=== PATIENT | male | born 1980 | race Hispanic/Latino ===

== ENCOUNTER 2021-07-07 13:25 | Emergency (ER) | payer SELFPAY | END 2021-07-08 04:42 | disposition left against medical advice (07) | LOC: ED 13:25 | DX: R07.9 Chest pain, unspecified (principal); Z53.21 Procedure and treatment not carried out due to patient leaving prior to being seen by health care provider ==

== ENCOUNTER 2021-07-08 13:58 | Emergency (ER) | payer BC ==
[2021-07-08 14:09] VITALS: BP 135/79
[2021-07-08] MEDS ORDERED: ASPIRIN 325 MG TAB PO ONE (16:13)
--- NOTE | 2021-07-08 16:56 | XRay Report ---
CHEST 2 VIEWS INDICATION: Chest Pain. COMPARISON: None FINDINGS: SUPPORT DEVICES: None. HEART: Within normal limits. LUNGS/PLEURA: No acute air space or interstitial disease. No pneumothorax. ADDITIONAL FINDINGS: None. IMPRESSION: 1. No acute findings. Signer Name: Brock Dean MD Signed: 07/08/2021 4:52 PM Workstation Name: [id number]
[2021-07-08 17:29] LABS: Alanine Aminotransferase 11 units/L (7-56); Albumin 4.2 g/dL (3.9-5); BUN/Creatinine Ratio 16; Blood Urea Nitrogen 14 mg/dL (9-20); Calcium 8.8 mg/dL (8.4-10.2); Hemolysis Index 33
--- NOTE | 2021-07-08 17:34 | Emergency Department Report ---
ED General Adult HPI - General Chief complaint: Chest Pain Stated complaint: CHEST PAIN Time Seen by Provider: 07/08/21 16:01 Source: patient Mode of arrival: Ambulatory Limitations: No Limitations - History of Present Illness Initial comments: Patient is a 40-year-old male presents emergency room with complaints of anxiety. He reports that his anxiety has been increasing over the last few months. He states he previously used to take Zoloft and Xanax and has been out of his medication for 4 months. He states over the last week he has had intermittent chest tightness and difficulty sleeping. He reports he has a history of anxiety, depression, PTSD. He denies any SI or HI. He denies any shortness of breath, cough, fever, vomiting, diarrhea, leg swelling, calf pain. He denies any chest tightness currently. He reports he has a history of h ypertension and is also supposed to be on medications but does not know what he used to take for his blood pressure. No allergies to medications. He is a smoker. He denies any family cardiac history. - Related Data Previous Rx's Medication Instructions Recorded Last Taken Type Sertraline [Zoloft] 50 mg PO QDAY #30 tablet 07/08/21 Unknown Rx hydrOXYzine HCL [Atarax] 25 mg PO Q6HR PRN #14 tablet 07/08/21 Unknown Rx Allergies Allergy/AdvReac Type Severity Reaction Status Date / Time No Known Allergies Allergy Verified 07/08/21 14:09 ED Review of Systems ROS: Stated complaint: CHEST PAIN Other details as noted in HPI Comment: All other systems reviewed and negative ED Past Medical Hx - Past Medical History Hx Hypertension: Yes Hx Psychiatric Treatment: (PTSD) - Medications Home Medications: Home Medications Medication Instructions Recorded Confirmed Last Taken Type Sertraline [Zoloft] 50 mg PO QDAY #30 tablet 07/08/21 Unknown Rx hydrOXYzine HCL [Atarax] 25 mg PO Q6HR PRN #14 tablet 07/08/21 Unknown Rx ED Physical Exam - General Limitations: No Limitations General appearance: alert, in no apparent distress - Head Head exam: Present: atraumatic, normocephalic - Eye Eye exam: Present: normal appearance - ENT ENT exam: Present: mucous membranes moist - Respiratory Respiratory exam: Present: normal lung sounds bilaterally. Absent: respiratory distress, wheezes, rales, rhonchi, stridor, chest wall tenderness, accessory muscle use, decreased breath sounds, prolonged expiratory - Cardiovascular Cardiovascular Exam: Present: regular rate, normal rhythm, normal heart sounds. Absent: systolic murmur, diastolic murmur, rubs, gallop - Neurological Exam Neurological exam: Present: alert, oriented X3 - Psychiatric Psychiatric exam: Present: normal affect, normal mood - Skin Skin exam: Present: warm, dry, intact ED Course Vital Signs 07/08/21 14:05 Temperature 98.0 F Pulse Rate 74 Respiratory 16 Rate Blood Pressure 135/79 O2 Sat by Pulse 100 Oximetry ED Medical Decision Making - Lab Data Result diagrams: 07/08/21 16:57 07/08/21 16:57 Lab Results 07/08/21 07/08/21 Range/Units 16:57 16:57 WBC 8.8 (4.5-11.0) K/mm3 RBC 4.57 (3.65-5.03) M/mm3 Hgb 14.9 (11.8-15.2) gm/dl Hct 44.4 (35.5-45.6) % MCV 97 H (84-94) fl MCH 33 H (28-32) pg MCHC 34 (32-34) % RDW 13.8 (13.2-15.2) % Plt Count 197 (140-440) K/mm3 Lymph % (Auto) 23.5 (13.4-35.0) % Henderson % (Auto) 7.5 H (0.0-7.3) % Eos % (Auto) 3.4 (0.0-4.3) % Baso % (Auto) 1.1 (0.0-1.8) % Lymph # (Auto) 2.1 (1.2-5.4) K/mm3 Henderson # (Auto) 0.7 (0.0-0.8) K/mm3 Eos # (Auto) 0.3 (0.0-0.4) K/mm3 Baso # (Auto) 0.1 (0.0-0.1) K/mm3 Seg Neutrophils % 64.5 (40.0-70.0) % Seg Neutrophils # 5.7 (1.8-7.7) K/mm3 Sodium 137 (137-145) mmol/L Potassium 4.0 (3.6-5.0) mmol/L Chloride 100.6 (98-107) mmol/L Carbon Dioxide 26 (22-30) mmol/L Anion Gap 14 mmol/L BUN 14 (9-20) mg/dL Creatinine 0.9 (0.8-1.3) mg/dL Estimated GFR > 60 ml/min BUN/Creatinine Ratio 16 % Glucose 93 (75-100) mg/dL Calcium 8.8 (8.4-10.2) mg/dL Total Bilirubin 0.40 (0.1-1.2) mg/dL AST 14 (5-40) units/L ALT 11 (7-56) units/L Alkaline Phosphatase 66 (35-129) units/L Troponin T < 0.010 (0.00-0.029) ng/mL Total Protein 6.4 (6.3-8.2) g/dL Albumin 4.2 (3.9-5) g/dL Albumin/Globulin Ratio 1.9 % - EKG Data EKG shows normal: sinus rhythm, axis Rate: normal - EKG Data 07/08/21 20:40 AK interval stable at 205 LAE no STEMI no T wave inversion - Radiology Data Radiology results: report reviewed Ordering Physician: LACIE HARPER Date of Service: 07/08/21 Procedure(s): XR chest routine 2V Accession Number(s): [id number] cc: LACIE HARPER Fluoro Time In Minutes: CHEST 2 VIEWS INDICATION: Chest Pain. COMPARISON: None FINDINGS: SUPPORT DEVICES: None. HEART: Within normal limits. LUNGS/PLEURA: No acute air space or interstitial disease. No pneumothorax. ADDITIONAL FINDINGS: None. IMPRESSION: 1. No acute findings. Signer Name: Brock Dean MD Signed: 07/08/2021 4:52 PM Workstation Name: [id number] Transcribed By: JW Dictated By: Brock Dean MD Electronically Authenticated By: Brock Dean MD Signed Date/Time: 07/08/211651 DD/ 50 TD/TT: - Medical Decision Making Patient is a 40-year-old male presents emergency room with complaints of anxiety. He reports that his anxiety has been increasing over the last few months. He states he previously used to take Zoloft and Xanax and has been out of his medication for 4 months. He states over the last week he has had intermittent chest tightness and difficulty sleeping. He reports he has a history of anxiety, depression, PTSD. He denies any SI or HI. He denies any shortness of breath, cough, fever, vomiting, diarrhea, leg swelling, calf pain. He denies any chest tightness currently. He reports he has a history of hypertension and is also supposed to be on medications but does not know what he used to take for his blood pressure. No allergies to medications. He is a smoker. He denies any family cardiac history. Vitals are stable. EKG with normal sinus rhythm AK interval stable at 205, LAE, no STEMI, no T wave inversion. Chest x-ray no acute process. Labs are stable. Troponin is negative. Heart score is 1, low risk for cardiac event. The up-to-date medical literature recommends on EKG and one negative troponin for symptoms have been ongoing for greater than 24 hours to rule out ACS. Discussed all findings with patient. Patient given refill of his Zoloft and will be given a prescription for hydroxyzine. discussed the importance of outpatient follow-up with primary care, cardiology, mental health. Patient has no clinical signs of acute psychosis, he is not having SI or HI. advised patient Please take medication as prescribed. Follow-up with your primary care doctor. Follow-up with mental health. Follow-up with a automat car attendant. Return to emergency room for any new or worsening symptoms. Critical care attestation.: If time is entered above; I have spent that time in minutes in the direct care of this critically ill patient, excluding procedure time. ED Disposition Clinical Impression: Chest tightness, Anxiety Insomnia Qualifiers: Insomnia type: unspecified Qualified Code(s): G47.00 - Insomnia, unspecified Disposition: HOME / SELF CARE / HOMELESS Is pt being admited?: No Does the pt Need Aspirin: No Condition: Stable Instructions: Nonspecific Chest Pain, Adult, Managing Anxiety, Adult Additional Instructions: Please take medication as prescribed. Follow-up with your primary care doctor. Follow-up with mental health. Follow-up with a automat car attendant. Return to emergency room for any new or worsening symptoms. Prescriptions: hydrOXYzine HCL [Atarax] 25 mg PO Q6HR PRN #14 tablet PRN Reason: anxiety Sertraline [Zoloft] 50 mg PO QDAY #30 tablet Referrals: PRIMARY CARE, [Primary Care Provider] - 3-5 Days [facility] ENG[facility] Phys[facility] - [facility]-5 Days Time of Disposition: 17:44 Print Language: UPPER [place] HEART Score - HEART Score History: Slightly suspicious EKG: Normal Age: < 45 Risk factors: 1-2 risk factors Troponin: Troponin T < 0.010 ng/mL (0.00-0.029) 07/08/21 16:57 Troponin: < normal limit HEART Score: 1
[2021-07-08 17:37] LABS: Basophils # (Auto) 0.1 K/mm3 (0.0-0.1); Basophils % (Auto) 1.1 % (0.0-1.8); Eosinophils # (Auto) 0.3 K/mm3 (0.0-0.4); Eosinophils % (Auto) 3.4 % (0.0-4.3); Hematocrit 44.4 % (35.5-45.6); Hemoglobin 14.9 gm/dl (11.8-15.2); Lymphocytes # (Auto) 2.1 K/mm3 (1.2-5.4); Lymphocytes % (Auto) 23.5 % (13.4-35.0); Mean Corpuscular HGB Conc 34 % (32-34); Mean Corpuscular Volume 97 fl (84-94); Monocytes # (Auto) 0.7 K/mm3 (0.0-0.8); Monocytes % (Auto) 7.5 % (0.0-7.3); Platelet Count 197 K/mm3 (140-440); Red Blood Count 4.57 M/mm3 (3.65-5.03); Red Cell Distribution Width 13.8 % (13.2-15.2)
--- NOTE | 2021-07-09 10:22 | Electrocardiograph Report ---
[facility] Test Date: 2021-07-08 Test Time: 14:28:24 Pat Name: LUISITO CRAMER Department: Room: Gender: M Field Interviewer: JOSUÉ : 1980 Requested By: PARTHA ABBASI Order Number: [id number] Reading MD: Manuel Fonseca Measurements Intervals [place] Rate: 71 P: 64 MD: 205 QRS: 79 QRSD: 86 T: 57 QT: 350 QTc: 379 Interpretive Statements Sinus rhythm Borderline prolonged MD interval Probable left atrial enlargement nonspecific st-t No previous ECG available for comparison Electronically Signed On 07-09-2021 10:21:50 EST by Manuel Fonseca
== END 2021-07-08 17:54 | disposition home or self-care (01) ==
LOC: ED 13:58
DX: G47.00 Insomnia, unspecified (principal); R07.9 Chest pain, unspecified; F41.9 Anxiety disorder, unspecified; I10 Essential (primary) hypertension
CPT/HCPCS: 36415; 71046; 80053; 84484; 85025; 93005; 99284